=== PATIENT | female | born 1995 | race Caucasian/White ===

== ENCOUNTER → 2019-05-30 15:04 | Outpatient (BNVA) | payer SELFPAY | PROVIDERS: Visit Provider Nurse Practitioner Family | DX: J10.1 Influenza due to other identified influenza virus with other respiratory manifestations (principal) | CPT/HCPCS: 87804 ==

== ENCOUNTER 2020-04-25 13:30 | Outpatient (CLI) | payer MEDICAID, SELFPAY ==
[2020-04-25 13:47] VITALS: BP 116/65; PULSE 83; RESP 17; TEMP 37
[2020-04-25 13:58] VITALS: BMI 27.2
[2020-04-25 14:04] VITALS: BP 115/58; PULSE 73
--- NOTE | 2020-04-25 14:13 | PC.NURSE ---
Confirmed patient's phone number where she can be reached. Patient acknowledges understanding that she could have to return depending on her test results.
[2020-04-25 14:27] LABS: Actim Prom Negative; Nitrazine Paper, PH Negative
[2020-04-25 14:44] LABS: Amorphous Sediment Urine 3+ /hpf; Bacteria Urine TRACE /hpf; Bilirubin Urine Neg (Negative); Blood Urine Neg (Negative); Glucose Urine UA Norm (Normal); Ketones Urine Negative (Negative); Leukocyte Esterase Urine Negative (Negative); Nitrate Urine Negative (Negative); Protein Urine Neg (Negative); Squamous Epithelial Cell Urine 0-4 /hpf (0-5); Urine Appearance Cloudy (CLEAR); Urine Color Yellow (Yellow); Urobilinogen Urine 1 mg/dL (Negative); WBC Urine 0-4 /hpf (0-5); pH Urine 7 (5-7)
[2020-04-25 14:45] LABS: Add Urine Culture? No
--- NOTE | 2020-04-25 14:53 | PC.NURSE ---
Patient updated on lab results and Dr. Garrett's update that everything looks good at this time. Patient denies any questions.
== END 2020-04-25 14:16 | disposition home or self-care (01) ==
LOC: OPOB 13:39 → OBGYN 13:39
PROVIDERS: Visit Provider Family Medicine
DX: O26.899 Other specified pregnancy related conditions, unspecified trimester (principal); Z3A.00 Weeks of gestation of pregnancy not specified; N89.8 Other specified noninflammatory disorders of vagina
CPT/HCPCS: 81001; 83986; 84112; 99211

== ENCOUNTER 2020-07-27 18:50 | Inpatient (IN) | payer MEDICAID, SELFPAY ==
[2020-07-27] VITALS (60 sets, daily range): BP systolic 96–133; BP diastolic 51–73; PULSE 75–118; RESP 18; TEMP 36.6–37.2; O2SAT 97–100; BMI 29.7
[2020-07-27 19:49] LABS: Basophils % 0.1 %; Eosinophils % 0.1 %; Hematocrit 37.1 % (37.0-47.0); Lymphocytes # 1.7 10^3/uL (0.8-4.8); Lymphocytes % 7.5 %; Mean Corpuscular HGB Conc 32.3 g/dL (30.0-36.0); Mean Corpuscular Hemoglobin 29.9 pg (28.0-34.0); Mean Corpuscular Volume 92.5 fL (81-99); Mean Platelet Volume 9.3 fL (7.4-10.4); Monocytes # 1.6 10^3/uL (0.2-0.9); Monocytes % 7.3 %; Neutrophils % 84.5 %; Nucleated Red Blood Cells % 0 %; Platelet Count 287 10^3/cmm (130-400); Red Blood Count 4.01 10^6/uL (4.1-5.3); Red Cell Distribution Width 12.4 % (12.1-15.1); White Blood Count 22.6 10^3/uL (4.0-10.0)
--- NOTE | 2020-07-27 21:33 | ANES.PREANE2 ---
Pre-Anesthetic Assessment Pre-Anesthetic Assessment: Height/Weight: Height 1.7 m Weight 86.183 kg Temp Pulse Resp BP Pulse Ox 97.9 F 81 18 110/54 98 07/27/20 21:32 07/27/20 21:30 07/27/20 16:30 07/27/20 21:30 07/27/20 21:27 Preop Diagnosis: Term Labor Proposed Procedure: ELIZABETH Was Beta Neo taken within 24 hours: N/A Was Clonidine taken within 24 hours: N/A Social: Social History: Tobacco and No alcohol Packs per day: 0.5 Airway: Submandibular: WNL Cervical ROM: WNL MP: 2 Dentition: Full History/ROS: No significant history except as noted and No significant complaints Pulmonary: Pulmonary: None reported CV/HEM: CV/HEM: None reported : : None reported Hepatic: Hepatic: None reported GI: GI: None reported Metabolic: Metabolic: None reported Musc/skel: Musc/skel: None reported Neuropsych: Neuropsych: None reported Anesthetic Plan: ASA status: 2 Anesthesia: Anesthesia Evaluation and Regional (specify below) (ELIZABETH) Risk of > 500 ml blood loss (7ml/kg in children): No PFSH Anesthesia PFSH: Social History Smoking and tobacco status: current every day smoker Alcohol intake: current Alcohol intake frequency: holidays/special occasions only Female Reproductive History: : 3 Data Anesthesia CBC & Chem 7: 07/27/20 19:12 Other Labs: Laboratory Results - last 48 hr 07/27/20 19:12 WBC 22.6 H RBC 4.01 L Hgb 12.0 Hct 37.1 MCV 92.5 MCH 29.9 MCHC 32.3 RDW 12.4 Plt Count 287 MPV 9.3 Neut % (Auto) 84.5 Lymph % (Auto) 7.5 Terrell % (Auto) 7.3 Eos % (Auto) 0.1 Baso % (Auto) 0.1 Neut # (Auto) 19.10 H Lymph # (Auto) 1.7 Terrell # (Auto) 1.6 H Eos # (Auto) 0.0 Baso # (Auto) 0.0 Nucleated RBC % (auto) 0 Nucleated RBCs # 0.0 Cardiac Studies: No Data to Display
--- NOTE | 2020-07-27 21:35 | P.ANES_ITS ---
Anesthesia Procedures Procedure/Date: 07/27/20 Epidural: Time Out Performed: Yes Consents Signed: Procedure Consent Consent: requested by attending/covering physician and from patient Lumbar Level: L3-L4 Epidural position: sitting Epidural procedure: sterile prep of area, 1% lidocaine to numb the area, 18 g needle, neg for paresthesia, test d ose given (5cc), 1.5% xylocaine 1:200k epi, 0.2% Ropivacaine bolus ml (5cc and fentanyl 100 mcg), no systemic response, L.U.D. no apparent complications and 0.2% Ropiavacaine @ mls/hr (13cc/hour) Additional Comments: MARIE at 6cm and cath threaded 3 cm into epidural space
[2020-07-27] MEDS: lactated ringers 1,000 ML 999 ML IV (22:14)
[2020-07-27] MEDS: ondansetron 2 mg/ML SDV 2 mL 4 MG IVP (22:20)
[2020-07-27] MEDS: oxytocin 30 UNIT/500 ML BAG 600 UNIT IV (23:45)
--- NOTE | 2020-07-27 23:57 | PM.DELIVERY ---
Delivery Note: Date of delivery: July 27, 2020 Pre-delivery diagnoses: 25-year-old 3 para 1-0-1-1 with an estimated gestational age of 40 weeks and 1 day presenting in active labor Post-delivery diagnoses: Status post spontaneous vaginal delivery Procedure: Spontaneous vaginal delivery Op report anesthesia: Epidural Delivering Physician: Donn Saleh Estimated blood loss (mL): 50 Pre-Delivery Course: The patient presented to the hospital in active labor. Her membranes were intact. Her contractions became more painful. An epidural was placed. Spontaneous rupture of membranes occurred. She progressed to complete without difficulty. She is GBS negative. She is Covid negative. Glucose screen was negative. Her blood type is O+. Otherwise the remainder of her labs are within normal limits. Delivery: DELIVERY: The patient progressed to complete without difficulty. She delivered a female with a weight of 7 pounds 1 ounce with Apgars of 8, 9. The baby was delivered from the HENNA position then placed on the mother's abdomen. Mouth and nose were briefly suctioned. The cord was then clamped and cut. There was no nuchal cord. There was no meconium. The placenta and 3 vessel cord were delivered intact shortly thereafter. The perineum and vaginal vault were carefully examined. No lacerations were noted. Both the mother and the baby were in stable condition. Post-Delivery Status: Good A&P Assessment and plan (1) 40 weeks gestation of : I anticipate routine care. Status: Acute (2) Spontaneous vaginal delivery: Status: Acute Coding Level of Care Code Acute Radio Operator for Chg Fwd Diagnoses 40 weeks gestation of Z3A.40 Spontaneous vaginal delivery O80
[2020-07-28] VITALS (20 sets, daily range): BP systolic 112–135; BP diastolic 56–76; PULSE 67–114; RESP 14–16; TEMP 36.1–36.9; O2SAT 98
[2020-07-28] MEDS: prenatal vitamin Capsule 1 CAP PO (08:11)
[2020-07-28] MEDS: ibuprofen 800 mg tablet PO ×3 (08:11→20:34)
[2020-07-28] MEDS: docusate sodium 100 mg Capsule PO ×2 (08:11→17:37)
--- NOTE | 2020-07-28 12:00 | PM.OBGYPN ---
COLOR DRUM WORKER Subjective Subjective: Interval history: The patient is doing well. Her pain is well controlled. Her bleeding has been minimal. She is breast-feeding well. Labor: Station: 0 Amniotic Membrane Status: Ruptured Monitor Mode: External Contraction Pattern: Regular Status: Category II Vitals/I&O/Wt Last Vital Signs Temp 97.7 F 07/28/20 10:02 Pulse 78 07/28/20 09:57 Resp 16 07/28/20 08:12 BP 112/67 07/28/20 09:57 Pulse Ox 100 07/27/20 23:22 07/27/20 07/28/20 07/28/20 22:59 06:59 14:59 Intake Total 1031.2 / 1031.2 Output Total 500 / 500 Balance -500 / -500 1031.2 / 1031.2 Weight last 48 hrs Weight 190 lb Physical Exam Narrative: EXAM NARRATIVE: The patient is alert. She appears comfortable. Her heart has a regular rate and rhythm with no murmurs appreciated. Lungs are clear to auscultation bilaterally. Her fundus is firm and below the umbilicus. Data : 07/27/20 19:12 A&P Assessment and plan (1) 40 weeks gestation of : If she continues to do well, I anticipate we will discharge her tomorrow morning. Status: Acute (2) Spontaneous vaginal delivery: Status: Acute Attestations Medical Necessity Statement*: Routine care Coding Level of Care Code Acute Kiln Furniture Saw Tender for Chg Fwd Diagnoses 40 weeks gestation of Z3A.40 Spontaneous vaginal delivery O80
[2020-07-28 12:10] LABS: Hematocrit 36.2 % (37.0-47.0); Hemoglobin 11.6 g/dL (11.5-15.3); Mean Corpuscular Hemoglobin 29.9 pg (28.0-34.0); Mean Corpuscular Volume 93.3 fL (81-99); Mean Platelet Volume 9.4 fL (7.4-10.4); Platelet Count 250 10^3/cmm (130-400); Red Blood Count 3.88 10^6/uL (4.1-5.3); Red Cell Distribution Width 12.5 % (12.1-15.1); White Blood Count 19.4 10^3/uL (4.0-10.0)
[2020-07-29 04:19] VITALS: BP 116/88; PULSE 91
[2020-07-29 04:22] VITALS: RESP 16; TEMP 36.2
--- NOTE | 2020-07-29 06:52 | PM.OBGYDC ---
Discharge Providers STOCKING INSPECTOR Date of Admission: 07/27/20 18:50 Date of Discharge: 07/29/20 Attending Provider at Admission: Donn Saleh MD Attending Provider at Discharge: Donn Saleh MD Primary Care Provider: [facility] Diagnoses at Discharge Discharge Diagnosis (1) 40 weeks gestation of : Status: Acute (2) Spontaneous vaginal delivery: Status: Acute Reason for Visit Reason for Visit: Contractions Hospital Course Hospital Course The patient presented to the hospital in active labor. An epidural was placed. Spontaneous rupture of membranes occurred. Patient then progressed to complete without difficulty. She had an unremarkable delivery of a healthy 40-week female infant. Her course was also unremarkable. Her bleeding was minimal. She breast-fed well. Her pain was well controlled. Physical Exam Narrative: EXAM NARRATIVE: The patient is alert. She appears comfortable. Her heart has a regular rate and rhythm with no murmurs appreciated. Lungs are clear to auscultation bilaterally. Her fundus is firm and below the umbilicus. Discharge Data Data Completed and Pending: Labs from last 24 hours 07/28/20 11:56 WBC 19.4 H RBC 3.88 L Hgb 11.6 Hct 36.2 L MCV 93.3 MCH 29.9 MCHC 32.0 RDW 12.5 Plt Count 250 MPV 9.4 Vitals: Last Vital Signs Temp 97.2 F L 07/29/20 04:22 Pulse 91 07/29/20 04:19 Resp 16 07/29/20 04:22 BP 116/88 07/29/20 04:19 Pulse Ox 98 07/28/20 20:36 Discharge Plan Discharge Patient Disposition: Home Condition: Stable Prescriptions: New ibuprofen 800 mg Tablet 800 mg PO TID Qty: 30 RF: 0 Discharge Orders: Discharge Order (Routine); Ordered 07/29/20 Ordered By: Donn Saleh Referrals: Donn Saleh MD [Physician] - 6 Weeks Discharge Diet: Usual diet Discharge Activity: Limit activity as instructed Discharge Attestations STOCKING INSPECTOR Time Spent in Discharge Care*: less than 30 min Coding Level of Care Code Acute Central Office Installer for Chg Fwd Diagnoses 40 weeks gestation of Z3A.40 Spontaneous vaginal delivery O80
[2020-07-29] MEDS: lanolin oint 7 gm 1 APPLIC TOPICAL (07:09)
[2020-07-29] MEDS: prenatal vitamin Capsule 1 CAP PO (08:41)
[2020-07-29] MEDS: ibuprofen 800 mg tablet PO (08:41)
[2020-07-29] MEDS: docusate sodium 100 mg Capsule PO (08:41)
[2020-07-29 08:50] VITALS: BP 122/73; PULSE 84
[2020-07-29 08:55] VITALS: BP 122/73; PULSE 84; RESP 17
--- NOTE | 2020-07-31 17:29 | PC.RESP ---
Smoking Cessation information sent to patient.
== END 2020-07-29 08:55 | disposition home or self-care (01) | DRG 807 ==
LOC: OBGYN 19:16 → OPOB 07-29 07:32
PROVIDERS: Admitting Provider Family Medicine; Visit Provider Family Medicine
DX: O48.0 Post-term pregnancy (principal); Z37.0 Single live birth; Z3A.40 40 weeks gestation of pregnancy; O99.334 Smoking (tobacco) complicating childbirth; F17.210 Nicotine dependence, cigarettes, uncomplicated
CPT/HCPCS: 12345; 36415; 59025; 59409; 85025; 85027; 99211; J2405; J2795; J3010

== ENCOUNTER → 2021-10-02 13:01 | Outpatient (BNVA) | payer MEDICAID, SELFPAY | PROVIDERS: Visit Provider Family Medicine | DX: M79.671 Pain in right foot (principal) | CPT/HCPCS: 73620 ==

== ENCOUNTER 2022-09-24 16:29 | Outpatient (CLI) | payer MEDICAID, SELFPAY ==
[2022-09-24 16:29] VITALS: BMI 32.3
[2022-09-24 16:53] VITALS: BP 122/72; PULSE 75
== END 2022-09-24 17:10 | disposition home or self-care (01) ==
LOC: OPOB 16:30 → OBGYN 16:31
PROVIDERS: Visit Provider Family Medicine
DX: O48.0 Post-term pregnancy (principal); Z3A.00 Weeks of gestation of pregnancy not specified
CPT/HCPCS: 59025; 99211

== ENCOUNTER 2022-09-27 17:04 | Inpatient (IN) | payer MEDICAID, SELFPAY ==
[2022-09-27] VITALS (44 sets, daily range): BP systolic 107–134; BP diastolic 56–77; PULSE 59–97; RESP 16; O2SAT 88–100; BMI 31.7
[2022-09-27 17:36] LABS: Basophils % 0.1 %; Hematocrit 37.1 % (37.0-47.0); Hemoglobin 11.9 g/dL (11.5-15.3); Lymphocytes # 0.6 10^3/uL (0.8-4.8); Lymphocytes % 4.1 %; Mean Corpuscular HGB Conc 32.1 g/dL (30.0-36.0); Mean Corpuscular Hemoglobin 28.3 pg (28.0-34.0); Mean Corpuscular Volume 88.1 fl (81-99); Mean Platelet Volume 9.8 fL (7.4-10.4); Monocytes # 0.6 10^3/uL (0.2-0.9); Neutrophils # 12.68 10^3/uL (1.8-7.7); Neutrophils % 91.4 %; Nucleated Red Blood Cells % 0 %; Platelet Count 288 10^3/cmm (130-400); Red Blood Count 4.21 10^6/uL (4.1-5.3); Red Cell Distribution Width 13.8 % (12.1-15.1); White Blood Count 13.9 10^3/uL (4.0-10.0)
[2022-09-27] MEDS: ondansetron 2 mg/ML SDV 2 mL 4 MG IVP (17:53)
[2022-09-27] MEDS: lactated ringers 1,000 ML 999 ML IV (17:53)
--- NOTE | 2022-09-27 18:41 | ANES.PREANE2 ---
Pre-Anesthetic Assessment Height/Weight: Height 1.73 m Weight 94.801 kg Pulse Resp BP Pulse Ox O2 Del Method 80 16 126/66 100 Room Air 09/27/22 18:38 09/27/22 17:02 09/27/22 18:38 09/27/22 18:36 09/27/22 16:57 Familial anesthetic complications: none Was Beta Neo taken within 24 hours: N/A Was Clonidine taken within 24 hours: N/A Social No alcohol and No tobacco Exam alert, oriented x 3, clear to auscultation bilaterally and regular rate & rhythm Airway Submandibular: within normal limits Cervical ROM: within normal limits Mallampati: Class II Dentition: full History/ROS No significant history except as noted Anesthetic Plan ASA status: 2 Anesthesia: Regional (specify below) (Labor epidural) Medications/Allergies Home Medications Medication Instructions Recorded Confirmed Last Taken Type norgestimate-ethinyl estradiol 1 tab PO DAILY #28 tabs 09/12/21 06/23/22 Unknown Rx 0.18 mg/0.215mg/0.25mg-35 mcg(28)tablet (Tri-Sprintec (28)) metronidazole 500 mg tablet 500 mg PO BID #14 tabs 10/22/21 06/23/22 Unknown Rx erythromycin 5 mg/gram (0.5 %) eye 0.5 inch ophthalmic (eye) TID #3.5 06/23/22 06/23/22 Unknown Rx ointment (3.5 gram tube) grams Allergies Allergy/AdvReac Type Severity Reaction Status Date / Time hydrocodone Allergy ALGY-Anaphy Verified 06/23/22 15:35 laxis morphine Allergy ADR-Nausea Verified 06/23/22 15:35 tramadol Allergy ADR-Nausea Verified 06/23/22 15:35 Current Medications Generic Name Dose Route Start Last Admin Trade Name Freq PRN Reason Stop Dose Admin Lactated Ringer's 1,000 mls @ 999 mls/hr 09/27/22 17:03 09/27/22 17:53 Lactated Ringers IV 999 mls/hr .Q1H1M PRN Administration See label comments Ondansetron HCl 4 mg 09/27/22 17:02 09/27/22 17:53 Ondansetron 2 Mg/Ml Sdv 2 Ml IVP 4 mg Q4H PRN Administration NAUSEA AND VOMITING PFSH Anesthesia Social History Smoking and tobacco status: current every day smoker Second hand smoke exposure: No Smoking risk assessment/counseling performed?: No Alcohol intake: current Alcohol intake frequency: holidays/special occasions only Substance/Drug Use: never Adopted: No Caregiver/support person: No Lives independently: Yes Household members: spouse Housing: House Marital status: Number of children: 2 Female Reproductive History : 5 Data Anesthesia 09/27/22 17:27 Short CBC 09/27/22 Range/Units 17:27 WBC 13.9 H (4.0-10.0) 10^3/uL Hgb 11.9 (11.5-15.3) g/dL Hct 37.1 (37.0-47.0) % MCV 88.1 (81-99) fl Plt Count 288 (130-400) 10^3/cmm Neut % (Auto) 91.4 % Neut # (Auto) 12.68 H (1.8-7.7) 10^3/uL Cardiac Studies: No Data to Display
--- NOTE | 2022-09-27 18:42 | ANES.PROC ---
Anesthesia Procedures Procedure/Date: 09/27/22 Epidural: Time Out Performed: Yes Consents Signed: Procedure Consent Consent: requested by attending/covering physician, from patient, risks and benefits reviewed and patient agrees to proceed Lumbar Level: L3-L4 Epidural position: sitting Epidural procedure: sterile prep of area, 1% lidocaine to numb the area, 18 g needle, neg for paresthesia, test dose given, 1.5% xylocaine 1:200k epi, 0.2% Ropivacaine bolus ml (5mls through needle), placed PCEA, no systemic response, sterile dressing applied and 0.2% Ropiavacaine @ mls/hr (10) Additional Comments: MARIE at 5cm, cath at 10cm
[2022-09-27] MEDS: metoclopramide 5 mg/mL SDV 2 mL 10 MG IV (20:01)
--- NOTE | 2022-09-27 20:52 | PM.OPHPUD ---
Labor & Delivery H&P Update Date of Procedure: September 27, 2022 Date H&P Performed: 09/25/22 Admission Diagnosis: 27-year-old female at 41 weeks estimated gestational age presenting in active labor Other information: The patient is a 27-year-old 5 para 2-0-2-2 with an estimated gestational age of 41 weeks and 4 days who presented in active labor. Her is otherwise been unremarkable. Her labs are as follows. Her blood type is O+. Her antibody screen was negative. She passed her glucose screen. She is rubella immune. She was GBS negative. Her drug screen was negative. Her infectious disease profile was within normal limits. She began having contractions at about 12:00 today. She came into the OB department where she was found to be 4 cm dilated. An epidural was placed. She then progressed to complete without difficulty.
--- NOTE | 2022-09-27 20:56 | PM.DELIVERY ---
Delivery Note: Date of delivery: September 27, 2022 Pre-delivery diagnoses: 27-year-old 5 para 2-0-2-2 at 41 weeks estimated gestational age in active labor Post-delivery diagnoses: Status post spontaneous vaginal delivery Procedure: Spontaneous vaginal delivery Delivering Physician: Donn Saleh Estimated blood loss (mL): 20 Pre-Delivery Course: The patient presented to the hospital in active labor. An epidural was placed. She progressed to complete without difficulty. Delivery: DELIVERY: The patient progressed to complete without difficulty. She delivered a male with a weight of 8 pounds 0 ounces with Apgars of 9, 9. The baby was delivered from the HENNA position. The baby's mouth and nose were suctioned at the site of the perineum. The baby was then completely delivered and placed on the mother's abdomen. The cord was then clamped and cut. There was a nuchal cord x1. The baby was delivered through the nuchal cord. There was no meconium. The placenta and 3 vessel cord were delivered intact shortly thereafter. The perineum and vaginal vault were carefully examined. No lacerations were noted. Both the mother and the baby were in stable condition. Post-Delivery Status: Good A&P Assessment and plan (1) 41 weeks gestation of : (2) Spontaneous vaginal delivery: I anticipate routine care. Coding Level of Care Code Acute Code for Chg Fwd Diagnoses 41 weeks gestation of O48.0; Z3A.41 Spontaneous vaginal delivery O80
[2022-09-27] MEDS: ibuprofen 800 mg tablet PO (23:00)
[2022-09-28 01:30] VITALS: BP 111/59; PULSE 72; RESP 16; O2SAT 97
[2022-09-28 06:10] VITALS: BP 105/65; PULSE 76; RESP 16; TEMP 36.7; O2SAT 98
--- NOTE | 2022-09-28 07:15 | PM.OBGYDC ---
Discharge Providers COMPRESSOR SERVICE TECHNICIAN Date of Admission: 09/27/22 17:04 Date of Discharge: 09/28/22 Attending Provider at Admission: Donn Saleh MD Attending Provider at Discharge: Donn Saleh MD Diagnoses at Discharge Discharge Diagnosis (1) 41 weeks gestation of : Status: Acute (2) Spontaneous vaginal delivery: Status: Resolved Reason for Visit Reason for Visit: contractions Hospital Course Hospital Course The patient presented to the hospital in active labor. An epidural was placed. Spontaneous rupture of membranes occurred. She progressed to complete without difficulty. She had an unremarkable delivery of a healthy appearing term . Her course was also unremarkable. She breast-fed well. Her bleeding was minimal. Her pain was well controlled. Information Peripartum Data: Infant Delivery Method: Vaginal Physical Exam Narrative: The patient is alert. She appears comfortable. Her heart has a regular rate and rhythm with no murmurs appreciated. Lungs are clear to auscultation bilaterally. Her fundus is firm and below the umbilicus. Urinary Catheter Management: Mcclain: Cath Placed During This Visit: yes Reason for Continuing Indwelling Catheter: Required Immobilization for Trauma or Surgery or Anesthesia Urinary Catheter Date of Insertion: 09/27/22 Urinary Catheter Time of Insertion: 19:45 Discharge Data Studies Completed and Pending Pending at discharge Category Date Time Status Hemagram Timed Lab 09/28/22 08:51 Uncollected Laboratory Results WBC 13.9 10^3/uL (4.0-10.0) H 09/27/22 17: RBC 4.21 10^6/uL (4.1-5.3) 09/27/22 17: Hgb 11.9 g/dL (11.5-15.3) 09/27/22 17: Hct 37.1 % (37.0-47.0) 09/27/22 17: MCV 88.1 fl (81-99) 09/27/22 17: MCH 28.3 pg (28.0-34.0) 09/27/22 17: MCHC 32.1 g/dL (30.0-36.0) 09/27/22 17:27 RDW 13.8 % (12.1-15.1) 09/27/22 17:27 Plt Count 288 10^3/cmm (130-400) 09/27/22 17:27 MPV 9.8 fL (7.4-10.4) 09/27/22 17: Neut % (Auto) 91.4 % 09/27/22 17: Lymph % (Auto) 4.1 % 09/27/22 17:27 Reeves % (Auto) 4.0 % 09/27/22 17: Eos % (Auto) 0.0 % 09/27/22 17: Baso % (Auto) 0.1 % 09/27/22 17: Neut # (Auto) 12.68 10^3/uL (1.8-7.7) H 09/27/22 17: Lymph # (Auto) 0.6 10^3/uL (0.8-4.8) L 09/27/22 17: Reeves # (Auto) 0.6 10^3/uL (0.2-0.9) 09/27/22 17: Eos # (Auto) 0.0 10^3/uL (0.0-0.8) 09/27/22 17: Baso # (Auto) 0.0 10^3/uL (0.0-0.1) 09/27/22 17: Nucleated RBC % (auto) 0 % 09/27/22 17: Nucleated RBCs # 0.0 /100WBC 09/27/22 17: Vitals Last Vital Signs Temp 98.1 F 09/28/22 06:10 Pulse 76 09/28/22 06:10 Resp 16 09/28/22 06:10 BP 105/65 09/28/22 06:10 Pulse Ox 98 09/28/22 06:10 O2 Del Method Room Air 09/28/22 06:10 Discharge Plan Discharge Patient Disposition: Home Condition: Stable Prescriptions: New ibuprofen 800 mg Tablet 800 mg PO TID Qty: 45 0RF -U 106.5-1 mg Capsule 1 cap PO DAILY Qty: 90 2RF Discontinued metronidazole 500 mg tablet 500 mg PO BID Qty: 14 0RF erythromycin 5 mg/gram (0.5 %) ointment 0.5 inch ophthalmic (eye) TID Qty: 3.5 0RF norgestimate-ethinyl estradiol [Tri-Sprintec ()] 0.18/0.215/0.25 mg-35 mcg (28) tablet 1 tab PO DAILY Qty: 28 0RF Discharge Orders: Discharge Order (Routine); Ordered 09/28/22 Ordered By: Donn Saleh Referrals: Donn Saleh MD [Physician] - 6 Weeks Discharge Diet: Usual diet Discharge Activity: Limit activity as instructed Patient Instructions: Opioid Safety Discharge Attestations COMPRESSOR SERVICE TECHNICIAN Time Spent in Discharge Care*: less than 30 min Coding Level of Care Code Acute Code for Chg Fwd Diagnoses 41 weeks gestation of O48.0; Z3A.41 Spontaneous vaginal delivery O80
--- NOTE | 2022-09-28 08:00 | ANE.PACU2 ---
Inpatient post-anesthesia follow up: Airway intact: Yes Vital signs: Temperature 98.6 F Pulse Rate 76 Respiratory Rate 18 Blood Pressure 127/76 Pulse Oximetry 97 Oxygen Delivery Me thod Room Air Oxygen Flow Rate Fraction of Inspir ed Oxygen Hydration adequate: Yes Nausea and vomiting: Yes Pain level: 1 Mental status: Baseline
[2022-09-28] MEDS: docusate sodium 100 mg Capsule PO (08:41)
[2022-09-28] MEDS: ibuprofen 800 mg tablet PO ×2 (08:41→16:02)
[2022-09-28] MEDS: prenatal vitamin Capsule 1 CAP PO (08:41)
[2022-09-28 09:39] LABS: Hematocrit 35.8 % (37.0-47.0); Hemoglobin 11.5 g/dL (11.5-15.3); Mean Corpuscular HGB Conc 32.1 g/dL (30.0-36.0); Mean Corpuscular Hemoglobin 28.5 pg (28.0-34.0); Mean Corpuscular Volume 88.6 fl (81-99); Mean Platelet Volume 10.3 fL (7.4-10.4); Platelet Count 288 10^3/cmm (130-400); Red Blood Count 4.04 10^6/uL (4.1-5.3); Red Cell Distribution Width 13.9 % (12.1-15.1); White Blood Count 11.1 10^3/uL (4.0-10.0)
[2022-09-28 09:49] VITALS: BP 109/72; PULSE 87; RESP 15; TEMP 36.6
[2022-09-28 16:38] VITALS: BP 118/80; PULSE 73; RESP 15; TEMP 36.7
[2022-09-28 21:15] VITALS: BP 127/76; PULSE 76; RESP 18; TEMP 37; O2SAT 97
== END 2022-09-28 21:30 | disposition home or self-care (01) | DRG 807 ==
LOC: OPOB 17:10 → OBGYN 17:11
PROVIDERS: Admitting Provider Family Medicine; Visit Provider Family Medicine
DX: O48.0 Post-term pregnancy (principal); Z37.0 Single live birth; Z3A.40 40 weeks gestation of pregnancy
CPT/HCPCS: 36415; 51702; 59025; 59409; 85025; 85027; 99211; J2405; J2765; J2795; J7040; J7120

== ENCOUNTER 2023-08-17 08:44 | Day surgery (SDC) | payer MEDICAID, SELFPAY ==
--- NOTE | 2023-08-12 10:44 | P.ANESASSM_ITS ---
Pre-Anesthetic Assessment Height/Weight: Height 1.73 m Preop Diagnosis: Desire permanent sterilization Operation Date: 08/17/23 10:10 Proposed Procedures p Laparoscopic bilateral salpingectomy 03723, z30.2(Bilateral) - Terell Love MD Familial anesthetic complications: none Was Beta Neo taken within 24 hours: N/A Was Clonidine taken within 24 hours: N/A Social Tobacco (vapes) and No alcohol Exam alert, oriented x 3, clear to auscultation bilaterally and regular rate & rhythm Airway Submandibular: within normal limits Cervical ROM: within normal limits Mallampati: Class II Dentition: chipped Neuropsych Anxiety and Depression Anesthetic Plan ASA status: 2 Anesthesia: General Medications/Allergies Home Medications Medication Instructions Recorded Confirmed Last Taken Type norethindrone acetate 1 mg-ethinyl 1 tab PO DAILY 04/01/23 08/12/23 08/11/23 History estradiol 20 mcg tablet (Junel) phentermine 37.5 mg tablet 37.5 mg PO DAILY 04/01/23 08/12/23 08/08/23 History venlafaxine 37.5 mg 37.5 mg PO DAILY 08/09/23 08/12/23 08/10/23 History capsule,extended release 24 hr (Effexor XR) Allergies Allergy/AdvReac Type Severity Reaction Status Date / Time fentanyl Allergy ADR-Halluci Verified 08/09/23 08:44 nating hydrocodone Allergy ALGY-Anaphy Verified 08/09/23 08:44 laxis morphine Allergy ADR-Nausea Verified 08/09/23 08:44 tramadol Allergy ADR-Nausea Verified 08/09/23 08:44 [facility] Anesthesia Social History Smoking and tobacco/nicotine status: current every day tobacco/nicotine user Second hand smoke exposure: No Alcohol intake: current Alcohol intake frequency: holidays/special occasions only Substance/Drug Use: never Adopted: No Caregiver/support person: No Lives independently: Yes Household members: spouse Housing: House Marital status: Number of children: 2 Female Reproductive History Date of last menstrual period: 08/12/23 Data Anesthesia Cardiac Studies: No Data to Display
[2023-08-12 10:53] LABS: Basophils % 0.7 %; Eosinophils # 0.1 10^3/uL (0.0-0.8); Hematocrit 41.3 % (36-47); Lymphocytes % 35.3 %; Mean Corpuscular HGB Conc 31.2 g/dL (30-55); Mean Corpuscular Hemoglobin 27.2 pg (27-33); Mean Corpuscular Volume 86.9 fl (85-98); Mean Platelet Volume 9.5 fL (7.4-10.4); Monocytes # 0.3 10^3/uL (0.2-0.9); Monocytes % 5.2 %; Neutrophils # 3.16 10^3/uL (1.8-7.7); Neutrophils % 56.8 %; Nucleated Red Blood Cells % 0 %; Platelet Count 358 10^3/cmm (157-399); Red Blood Count 4.75 10^6/uL (3.85-5.65); Red Cell Distribution Width 13.6 % (12.1-15.1); White Blood Count 5.56 10^3/uL (3.29-11.43)
[2023-08-12 11:02] LABS: Add Urine Microscopic? YES; Bilirubin Urine Neg (Negative); Blood Urine 3+ (Negative); Glucose Urine UA Norm (Normal); Ketones Urine Negative (Negative); Leukocyte Esterase Urine Negative (Negative); Nitrate Urine Negative (Negative); OR HCG Qualitative Urine Negative (Negative); Protein Urine Neg (Negative); Urine Appearance Clear (CLEAR); Urine Color Yellow (Yellow); Urobilinogen Urine Norm (Negative); pH Urine 7 (5-7)
[2023-08-12 11:13] LABS: Add Urine Culture? No; Squamous Epithelial Cell Urine 0-4 /hpf (0-5)
[2023-08-12 11:14] LABS: Alanine Aminotransferase 32 U/L (0-33); Albumin Level 4.1 g/dL (3.5-5.2); Alkaline Phosphatase 66 U/L (35-105); Aspartate Amino Transferase 16 U/L (0-32); Blood Urea Nitrogen 13 mg/dL (6-20); Carbon Dioxide 26 mmol/L (22-29); Chloride 105 mmol/L (98-107); Globulin 3.2 g/dL (1.3-4.6); Glomerular Filtration Rate 100.4 mL/min (90-130); Glucose 76 mg/dL (65-115); Osmolality Calculated 289 mOsm/kg (285-295); Sodium 140 mmol/L (136-145); Total Bilirubin 0.5 mg/dL (0.15-1.2); Total Protein 7.3 g/dL (6.6-8.7)
[2023-08-17] VITALS (11 sets, daily range): BP systolic 102–125; BP diastolic 56–86; PULSE 65–85; RESP 15–18; TEMP 36.1–36.6; O2SAT 93–100; BMI 27.3
[2023-08-17] MEDS: sodium chloride 0.9% 500 ML IV (09:01)
[2023-08-17] MEDS: sodium chloride 0.9% 1,000 ML 30 ML IV (09:03)
[2023-08-17] MEDS: scopolamine 1.5 Patch 1 PATCH TRANSDERMA (09:25)
--- NOTE | 2023-08-17 09:31 | P.ANESUD_ITS ---
Pre-Anesthetic Update Pre-Anesthetic Assessment: Date of Surgery/Procedure: 08/17/23 Preop Dian gnosis: Desire permanent sterilization Proposed Procedure: Operation Date: 08/17/23 10:10 Proposed Procedures p Laparoscopic bilateral salpingectomy 01813, z30.2(Bilateral) - Terell Love MD Last Intake: Intake Last Liquid Date 08/16/23 Last Liquid Time 21:30 Last Solid Date 08/16/23 Last Solid Time 21:00 Vitals: Oxygen Delivery Me thod Room Air 08/17/23 08:54 Exam: Pre-Anes Outpt Exam: alert, oriented x 3, clear to auscultation bilaterally and regular rate & rhythm Other Pertinent Information: Other Pertinent Information: quit smoking 2 mo ago Cardiac Studies: No Data to Display
--- NOTE | 2023-08-17 10:36 | W.PM.OPSUD ---
Surgery/Procedure H&P Update DATE OF PROCEDURE: August 17, 2023 DATE H&P PERFORMED: 08/09/23 H&P UPDATE INFORMATION: I have reviewed H&P completed within last 30 days, I have examined patient prior to procedure and No changes to prior documentation PREOP DIAGNOSIS: Desire permanent sterilization PLANNED PROCEDURE: Operation Date: 08/17/23 10:10 Proposed Procedures p Laparoscopic bilateral salpingectomy 24623, z30.2(Bilateral) - Terell Love MD
[2023-08-17] MEDS: ceFAZolin 2,000 MG in sodium chloride 0.9% (plus) 50 ML 100 MG IV (11:09)
[2023-08-17] MEDS: BUPivacaine 0.5% INJ 10 mL INJECTION (11:44)
--- NOTE | 2023-08-17 12:08 | PM.OP ---
Operative Report Date of procedure: August 17, 2023 Pre-op diagnosis: Desire permanent sterilization Post-op diagnosis: same Procedure done: Laparoscopic bilateral salpingectomy Specimens removed/disposition: Left and right fallopian tube Surgeon: Terell Love MD Estimated blood loss (mL): 5 IV fluids (mL): 800 Urine output (mL): 50 Complications: None Findings: Normal anatomy Procedure: After informed consent, the patient was taken to the operating room where general anesthesia was administered. She was placed in the dorsal lithotomy position and prepped and draped in sterile fashion. Pre-Procedure Time-Out verifying the correct patient identity, correct procedure verified with consent, correct site and side, correct patient position, availability of correct implants and any special equipment or requirements was performed and acknowledge by the OR team. The patient was examined under anesthesia and found to have a normal uterus with normal adnexa. An open side speculum was placed in the vagina, and the anterior lip of cervix was grasped with the single toothed tenaculum. The uterus was sounded to 9 cm. A uterine manipulator was advanced into the endocervical canal and uterus. The tenaculum was removed after uterine manipulator was secured. The speculum was removed from the vagina. An intraumbilical incision was made with a scalpel. While tenting up on the abdomen, a Verres needle was admitted into the intra-abdominal cavity. A saline drop test was performed and noted to be within normal limits. Pneumoperitoneum was attained with 4 liters of carbon dioxide. The Verres needle was removed. A 5 mm Opitc view trocar and sleeve were admitted into the abdomen and laparoscopic confirmation of location was achieved. A second incision was made 3 cm above the symphysis pubis, and a 5 mm trocar sleeves were admitted into the abdomen under direct laparoscopic visualization without complication. A survey revealed normal abdominal anatomy with the exception of string adhesion to the right lower anterior abdominal wall. A 5 mm blunt probe was advanced through the second trocar sleeve, and light manipulation of ovaries and uterus to assess the posterior aspects was performed. The pelvic survey shows normal uterus, left and right adnexa. The left ovary was noted with a follicular cyst. The patient was placed into Trendelenburg position. The fallopian tubes were inspected bilaterally and the fimbriated ends of the fallopian tubes were visualized bilaterally. Attention was then directed to the right side. The fallopian tube and mesosalpinx were grasped and the underlying mesosalpinx was cauterized and cut using the Ligasure device. Serial cauterization and cutting was used to separate the fallopian tube from the underlying mesosalpinx until it could be amputated cutting it approximated 2 cm from the cornua. Attention was then turned to the contralateral fallopian tube, which was removed in similar fashion. Both specimens were removed through the trocar and sent to pathology. The instruments were removed. The suprapubic trocar port was removed under direct visualization insuring good hemostasis. The carbon dioxide was allowed to escape from the abdomen. The intraumbilical trocar sleeve was withdrawn under visualization with laparoscope in the sleeve to insure hemostasis. The skin incisions were closed with 3-O Monocryl subcuticular stich and Dermabond. The instruments were removed from the vagina, and excellent hemostasis was noted. The patient tolerated the procedure well, and sponge, lap and needle count were correct times two. The patient was taken to the recovery room in good condition.
[2023-08-17] MEDS: ondansetron 2 mg/ML SDV 2 mL 4 MG IVP (12:20)
[2023-08-17] MEDS: metoclopramide 5 mg/mL SDV 2 mL 10 MG (12:45)
[2023-08-17] MEDS: diphenhydrAMINE 50 mg/mL SDV 1mL 12.5 MG IVP (12:45)
--- NOTE | 2023-08-17 13:43 | SUR.PHASEII ---
urinary catheter removed before discharge. 3ml NS removed from bulb. patient able to urinate before discharge.
--- NOTE | 2023-08-17 15:04 | ANE.PACU2 ---
Inpatient post-anesthesia follow up: Vital signs: Temperature 97.6 F Pulse Rate 77 Respiratory Rate 18 Blood Pressure 115/57 Pulse Oximetry 99 Oxygen Delivery Me thod Room Air Oxygen Flow Rate 6 Fraction of Inspir ed Oxygen Hydration adequate: Yes Nausea and vomiting: No Mental status: Baseline Additional Comments: no apparent anesthetic complications noted
== END 2023-08-17 13:35 | disposition home or self-care (01) ==
PROVIDERS: PCP Nurse Practitioner Family; Visit Provider Obstetrics & Gynecology
PROC: (CPT 58661; principal; 2023-08-17 10:00)
DX: Z30.2 Encounter for sterilization (principal); F17.290 Nicotine dependence, other tobacco product, uncomplicated
CPT/HCPCS: 58661; 36415; 80053; 81001; 84703; 85025; 86850; 86900; 88302; J0131; J0690; J1100; J1170; J1200; J1885; J2405; J2704; J2710; J2765; J3490; J7030; J7040

== ENCOUNTER 2024-01-26 14:51 | Outpatient (CLI) | payer MEDICAID, SELFPAY ==
--- NOTE | 2024-01-26 14:56 | XRR_ITS ---
PROCEDURE INFORMATION: Exam: XR Thoracic Spine Exam date and time: 01/26/2024 3:12 PM Age: 28 years old Clinical indication: Pain in thoracic spine; Additional info: Back pain, TECHNIQUE: Imaging protocol: Radiologic exam of the thoracic spine. Views: 2 views. COMPARISON: No relevant prior studies available. FINDINGS: Bones/joints: Normal. No acute fracture. Normal alignment. Soft tissues: Unremarkable. XR/XR thoracic spine 2V [id number] IMPRESSION: No acute findings.
== END 2024-01-26 14:52 | disposition home or self-care (01) ==
LOC: RAD 14:53
PROVIDERS: PCP Nurse Practitioner Family; Visit Provider Nurse Practitioner Family
DX: M54.6 Pain in thoracic spine (principal)
CPT/HCPCS: 72070

== ENCOUNTER 2024-05-22 08:30 | Outpatient (CLI) | payer MEDICAID, SELFPAY ==
--- NOTE | 2024-05-22 08:30 | US_ITS ---
WS: [id number] RIGHT UPPER QUADRANT ULTRASOUND HISTORY: GERD COMPARISON: None available. Liver: 16.4 cm in length. Normal size liver and echogenicity. No bile duct dilatation or mass. Portal Vein: Normal hepatopetal flow with monophasic waveform. Gallbladder: Normally distended gallbladder with no stones or wall thickening. CBD: 0.4 cm Pancreas: Normal size and echogenicity. Right kidney: 10.2 cm in length. Normal size and echogenicity. No hydronephrosis or mass. Aorta and IVC: Unremarkable abdominal aorta and IVC. No ascites. US/US gall bladder [id number] IMPRESSION: Normal right upper quadrant ultrasound.
== END 2024-05-22 08:49 | disposition home or self-care (01) ==
PROVIDERS: PCP Nurse Practitioner Family; Visit Provider Student in an Organized Health Care Education/Training Program
DX: K21.9 Gastro-esophageal reflux disease without esophagitis (principal)
CPT/HCPCS: 76705

== ENCOUNTER 2024-05-29 11:42 | Day surgery (SDC) | payer MEDICAID, SELFPAY ==
[2024-05-29 12:01] VITALS: BP 122/67; PULSE 72; RESP 17; TEMP 36.7; O2SAT 100; BMI 27.6
[2024-05-29 12:05] LABS: OR HCG Qualitative Urine Negative (Negative)
--- NOTE | 2024-05-29 12:29 | ANES.PREANE2 ---
Pre-Anesthetic Assessment Height/Weight: Height 1.7 m Weight 79.832 kg Temp Pulse Resp BP Pulse Ox O2 Del Method 98.0 F 72 17 122/67 100 Room Air 05/29/24 12:05/29/24 12:05/29/24 12:05/29/24 12:05/29/24 12:05/29/24 12:01 Operation Date: 05/29/24 12:30 Proposed Procedures p EGD 97631, k21.9(Not Applicable) - Yung Arvizu MD Familial anesthetic complications: None Was Beta Neo taken within 24 hours: N/A Was Clonidine taken within 24 hours: N/A Last intake: Intake Last Liquid Date 05/28/24 Last Liquid Time 22:00 Last Solid Date 05/28/24 Last Solid Time 19:00 Social No alcohol and No tobacco vapes Exam alert, oriented x 3, clear to auscultation bilaterally and regular rate & rhythm Airway Mallampati: Class II Dentition: chipped and other (missing tooth) Anesthetic Plan ASA status: 1 Anesthesia: MAC Risk of > 500 ml blood loss (7ml/kg in children): No Medications/Allergies Home Medications Medication Instructions Recorded Confirmed Last Taken Type venlafaxine 37.5 mg 75 mg PO DAILY 08/09/23 05/29/24 05/29/24 History capsule,extended release 24 hr (Effexor XR) acetaminophen 325 mg capsule 325 mg PO Q4H PRN fever or pain 08/17/23 05/29/24 Unknown Rx #60 caps ibuprofen 800 mg tablet 800 mg PO TID PRN pain #60 tabs 08/17/23 05/29/24 Unknown Rx topiramate 25 mg tablet (Topamax) 50 mg PO DAILY 11/26/23 05/29/24 05/29/24 History buspirone 10 mg tablet 10 mg PO DAILY 05/11/24 05/29/24 05/29/24 History pantoprazole 40 mg tablet,delayed 40 mg PO BID 6 weeks #84 tabs 05/11/24 05/29/24 05/29/24 Rx release (Protonix) vitamin with calcium 1 tab PO DAILY 05/11/24 05/29/24 05/29/24 History no.72-iron 27 mg-folic acid 1 mg tablet (M- Plus) sucralfate 100 mg/mL oral 10 ml PO BID 8 weeks #1,120 mL 05/11/24 05/29/24 05/25/24 Rx suspension Allergies Allergy/AdvReac Type Severity Reaction Status Date / Time fentanyl Allergy ADR-Halluci Verified 05/25/24 12:04 nating hydrocodone Allergy ALGY-Anaphy Verified 05/25/24 12:04 laxis morphine Allergy ADR-Nausea Verified 05/25/24 12:04 tramadol Allergy ADR-Nausea Verified 05/25/24 12:04 [facility] Anesthesia Medical History No pertinent past medical history neghx: htn, dm, thyroid, dvt/pe PCP: Nury Meehan NP Scabies Surgical History H/O bilateral salpingectomy (~08/17/23) Laparoscopic approach performed Dr. Love. Family History Family/Other Thyroid disease paternal aunt Grandfather Stroke Heart disease Hypertension Father Heart disease Hypertension Grandmother Heart disease Hypertension Denies family history of Colon cancer Ovarian cancer Prostate cancer Diabetes Hyperlipidemia Breast cancer Uterine cancer Social History Smoking and tobacco/nicotine status: never used tobacco/nicotine Female Reproductive History Date of last menstrual period: 05/17/24 Data Anesthesia Cardiac Studies: No Data to Display
--- NOTE | 2024-05-29 13:14 | W.PM.OPSUD ---
Surgery/Procedure H&P Update DATE OF PROCEDURE: May 29, 2024 DATE H&P PERFORMED: 05/11/24 H&P UPDATE INFORMATION: I have reviewed H&P completed within last 30 days, I have examined patient prior to procedure and No changes to prior documentation PLANNED PROCEDURE: Operation Date: 05/29/24 12:30 Proposed Procedures p EGD 50658, k21.9(Not Applicable) - Yung Arvizu MD
[2024-05-29 13:27] VITALS: BP 124/85; PULSE 77; RESP 16; TEMP 36.2; O2SAT 100
[2024-05-29 13:41] VITALS: BP 105/70; PULSE 69; RESP 16; O2SAT 100
[2024-05-29 13:51] VITALS: BP 114/74; PULSE 66; RESP 16; O2SAT 100
--- NOTE | 2024-05-29 15:38 | ANE.PACU2 ---
Inpatient post-anesthesia follow up: Airway intact: Yes Vital signs: Temperature 97.2 F Pulse Rate 66 Respiratory Rate 16 Blood Pressure 114/74 Pulse Oximetry 100 Oxygen Delivery Me thod Room Air Oxygen Flow Rate Fraction of Inspir ed Oxygen Hydration adequate: Yes Nausea and vomiting: No Pain level: 1 Mental status: Baseline
== END 2024-05-29 13:55 | disposition home or self-care (01) ==
PROVIDERS: Anesthesiology; PCP Nurse Practitioner Family; Visit Provider Student in an Organized Health Care Education/Training Program
PROC: 0DJ08ZZ Inspection of Upper Intestinal Tract, Via Natural or Artificial Opening Endoscopic (ICD-10-PCS; principal; 2024-05-29 12:30)
DX: K29.50 Unspecified chronic gastritis without bleeding (principal); K21.9 Gastro-esophageal reflux disease without esophagitis; K08.409 Partial loss of teeth, unspecified cause, unspecified class; Z79.899 Other long term (current) drug therapy; Z88.5 Allergy status to narcotic agent
CPT/HCPCS: 43239; 81025; 88305; 88342; J2704

== ENCOUNTER 2024-07-05 08:17 | Outpatient (CLI) | payer MEDICAID, SELFPAY ==
--- NOTE | 2024-07-05 08:00 | NM_ITS ---
WS: [id number] NUCLEAR MEDICINE HIDA SCAN CLINICAL INFORMATION: biliary dyskinesia TECHNIQUE: Following intravenous administration of 7.9 mCi of technetium 99m mebrofenin, images of the abdomen were obtained over the course of 60 minutes. Next, gallbladder ejection fraction was determined by obtaining preprandial and one-hour postprandial images of the gallbladder following oral ingestion of Ensure. FINDINGS: Normal hepatic uptake at 5 minutes. Normal hepatic excretion. Gallbladder is visualized by 20 minutes. No evidence of acute cholecystitis. Normal common bile duct and small bowel activity. Gallbladder ejection fraction 91% within normal limits. No evidence of chronic cholecystitis. NM/NM hepatobiliary w phar* [id number] IMPRESSION: 1. No evidence of acute or chronic cholecystitis. 2. Gallbladder ejection fraction 91% within normal limits
== END 2024-07-05 08:18 | disposition home or self-care (01) ==
LOC: RAD 08:18
PROVIDERS: PCP Nurse Practitioner Family; Visit Provider Student in an Organized Health Care Education/Training Program
DX: K82.8 Other specified diseases of gallbladder (principal)
CPT/HCPCS: 78227; A9537

== ENCOUNTER → 2025-01-25 15:53 | Outpatient (BNVA) | payer MEDICAID, SELFPAY | PROVIDERS: PCP Nurse Practitioner Family; Visit Provider Registered Nurse Neonatal Intensive Care | DX: M25.571 Pain in right ankle and joints of right foot (principal) | CPT/HCPCS: 73610 ==

== ENCOUNTER 2025-02-20 15:33 | Outpatient (CLI) | payer MEDICAID, SELFPAY ==
--- NOTE | 2025-02-20 15:44 | XRR_ITS ---
PROCEDURE INFORMATION: Exam: XR Right Ankle Exam date and time: 02/20/2025 3:51 PM Age: 30 years old Clinical indication: Swelling or effusion of joint; Swelling & brusing on lateral portion of RT ankle x few days. ; Additional info: Ankle pain TECHNIQUE: Imaging protocol: Radiologic exam of the right ankle. Views: 1 or 2 views. COMPARISON: CR XR ankle RT min 3V* [id number] 01/25/2025 3:57 PM FINDINGS: Bones/joints: No acute fractures. No dislocations. No significant osseous lesions. Soft tissues: No significant soft tissue abnormalities. XR/XR ankle RT 2V [id number] IMPRESSION: No acute fractures or malalignment.
--- NOTE | 2025-02-20 15:44 | XRR_ITS ---
PROCEDURE INFORMATION: Exam: XR Right Foot Exam date and time: 02/20/2025 3:51 PM Age: 30 years old Clinical indication: Swelling, leg or foot; Swelling & brusing on lateral portion of RT ankle x few days. ; Additional info: Foot pain TECHNIQUE: Imaging protocol: Radiologic exam of the right foot. Views: 1 or 2 views. COMPARISON: CR XR foot RT 2V [id number] 10/02/2021 1:06 PM FINDINGS: Bones/joints: No acute fractures. No dislocations. No significant osseous lesions. Soft tissues: No significant soft tissue abnormalities. XR/XR foot RT 2V [id number] IMPRESSION: No acute fractures or malalignment.
== END 2025-02-20 15:34 | disposition home or self-care (01) ==
LOC: RAD 15:35
PROVIDERS: PCP Nurse Practitioner Family; Visit Provider Nurse Practitioner Family
DX: M25.571 Pain in right ankle and joints of right foot (principal); M25.471 Effusion, right ankle
CPT/HCPCS: 73600; 73620

== ENCOUNTER → 2025-03-13 13:19 | Outpatient (BNVA) | payer MEDICAID, SELFPAY | PROVIDERS: PCP Nurse Practitioner Family; Visit Provider Podiatrist Foot & Ankle Surgery | DX: M79.671 Pain in right foot (principal); S93.431A Sprain of tibiofibular ligament of right ankle, initial encounter; W18.40XA Slipping, tripping and stumbling without falling, unspecified, initial encounter | CPT/HCPCS: 73600; 73630 ==

== ENCOUNTER 2025-03-27 14:46 | Outpatient (CLI) | payer MEDICAID, SELFPAY ==
--- NOTE | 2025-03-27 14:30 | MRR_ITS ---
PROCEDURE INFORMATION: Exam: MR Right Lower Extremity Joint Without Contrast; Ankle Exam date and time: 03/27/2025 3:00 PM Age: 30 years old Clinical indication: Injury or trauma; Sprain or strain; Injury details: Patient is a 30-year-old female who presents to clinic today with complaint of persistent right ankle pain. She states she tripped over her child's bike approximately 2 months ago. Pain and swelling have persisted since the injury. Pain is localized to the distal syndesmosis region and is worsened with maximum dorsiflexion of the ankle. She denies episodes of instability but reports ongoing discomfort that affects daily activities. She is concerned about a possible ligament or structural injury; Additional info: Syndesmotic injury TECHNIQUE: Imaging protocol: Magnetic resonance imaging of the right lower extremity without contrast. Exam focused on the ankle. COMPARISON: CR XR ankle RT 2V [id number] 03/13/2025 1:34 PM FINDINGS: Bones/joints: There is some subtle subchondral reactive marrow changes at the lateral aspect of the dorsal cortex of the navicular navicular bone with cortical notching best seen on image 9 of sagittal series 701. The dorsal talonavicular ligament is intact. LIGAMENTS: Distal tibiofibular syndesmosis: There is no edema present at the dorsal margin of the tibia fibula interosseous membrane/syndesmosis. Anterior talofibular ligament: Unremarkable. No tear. Posterior talofibular ligament: Unremarkable. No tear. Calcaneofibular ligament: Unremarkable. No tear. Deltoid ligament complex: Unremarkable. No tear. TENDONS: Flexor tendons of foot: Unremarkable as visualized. Tibialis posterior tendon: Unremarkable as visualized. Peroneal tendons: Unremarkable as visualized. Extensor tendons of foot: Unremarkable as visualized. Tibialis anterior tendon: Unremarkable as visualized. Achilles tendon: Unremarkable as visualized. Tarsal canal (Sinus tarsi): Unremarkable. Normal signal of the fat. Tarsal tunnel: Unremarkable. Soft tissues: There is a very small ganglion along the dorsal edge of the junction of the base of the 2nd and 3rd metatarsal. Plantar fascia: Plantar fascia is unremarkable. MR/MR ankle RT wo con* [id number] IMPRESSION: 1. No MR evidence of acute internal derangement of the ankle. 2. Subtle subchondral marrow changes and cortical notching of the lateral most aspect of the dorsal cortex of the navicular bone. Please correlate for point tenderness in this region. This could represent a subtle subacute impaction fracture. If further characterization is warranted, follow-up CT.
== END 2025-03-27 14:47 | disposition home or self-care (01) ==
LOC: RAD 14:48
PROVIDERS: PCP Nurse Practitioner Family; Visit Provider Podiatrist Foot & Ankle Surgery
DX: S93.431A Sprain of tibiofibular ligament of right ankle, initial encounter (principal); W01.198A Fall on same level from slipping, tripping and stumbling with subsequent striking against other object, initial encounter; M67.471 Ganglion, right ankle and foot
CPT/HCPCS: 73721